=== PATIENT | female | born 1940 | race Caucasian/White ===

== ENCOUNTER 2016-06-09 14:43 | Outpatient (CLI) | payer OTHER, MEDICARE ==
[~2016-06-09 14:43] MED LIST: AMILORIDE HCL5 MG PO; ASPIRIN EC81 MG PO; CALCIUM CARBON500 MG PO; CEFUROXIME AXE500 MG PO; COQ-1010 MG PO; CYCLOBENZAPRINE5 MG PO; DICYCLOMINE HCL10 MG PO; DILT-XR120 MG PO; FLONASE AL50 MCG/AC1; FUROSEMIDE20 MG PO; FUROSEMIDE40 MG PO; LEVOTHYROXINE50 MCG PO; LISINOPRIL5 MG PO; MAGNESIUM400 M1 PO; MEPERITAB50 MG PO; OMEPRAZOLE20 M1 PO; OXYBUTYNIN CHLOR5 MG PO; PHENERGAN EQUIV25 MG PO; SUCRALFATE1 GM PO; VITAMIN E200 UNIT PO; ZINC SULFATE220 MG PO
--- NOTE | 2016-06-09 15:23 | DIAGNOSTIC IMAGING REPORT ---
PROCEDURE: XR CHEST 2 VIEW INDICATION: Preop, history of cardiomyopathy. TECHNIQUE: Two views. COMPARISON: 10/21/2015, 06/18/2015, and 06/08/2013 FINDINGS: Mild cardiomegaly with dual lead transvenous pacemaker. Normalization of the mediastinum and hilar structures. No significant central vascular congestion. Minor pleuroparenchymal scarring left lateral lung base. The lungs are otherwise clear. No acute consolidation, pleural effusion, or pneumothorax. Intact osseous structures. IMPRESSION: 1. Mild cardiomegaly, improved compared to previous studies. 2. Dual lead pacemaker. No evidence of acute CHF. 3. Mild left lung base scarring. No acute pulmonary parenchymal process.
== END 2016-06-09 23:00 ==
LOC: XR SRH 14:43
DX: I42.9 Cardiomyopathy, unspecified (principal); Z95.0 Presence of cardiac pacemaker

== ENCOUNTER 2016-06-23 13:32 | Outpatient (CLI) | payer OTHER, MEDICARE | END 2016-06-23 23:00 | LOC: LAB SRH 13:32 | DX: Z01.812 Encounter for preprocedural laboratory examination (principal); M48.02 Spinal stenosis, cervical region; M54.12 Radiculopathy, cervical region | CPT/HCPCS: 90047; 90074; 95059 ==